=== PATIENT | male | born 1975 | race Caucasian/White ===

== ENCOUNTER 2021-10-15 11:22 | Emergency (ER) | payer BC, MEDICARE ==
[2021-10-15] MEDS ORDERED: IBUPROFEN 600 MG TAB PO STA (11:50)
--- NOTE | 2021-10-15 11:54 | ED ---
General Adult HPI - General Chief complaint: Upper Respiratory Infection Stated complaint: Covid+/SOB Time Seen by Provider: 10/15/21 11:34 Source: patient, RN notes reviewed Mode of arrival: ambulatory Limitations: no limitations - History of Present Illness Initial comments: 45-year-old male presents to the emergency department for evaluation of conge sted cough, body aches, and headache. Patient states his symptoms began on , and tested positive for Covid on Saturday. States he did have a close contact exposure. Patient is not vaccinated. States he now has a poor appetite, decrease in oral intake, and occasional episodes of diarrhea. Denies fever, chills, chest pain, shortness of breath, difficulty breathing, abdominal pain, nausea, vomiting, dysuria, and hematuria. - Related Data Home Medications Medication Instructions Recorded Confirmed PARoxetine HCL 20 mg PO DAILY 10/15/21 10/15/21 Previous Rx's Medication Instructions Recorded Dexamethasone [Decadron] 6 mg PO DAILY #10 tablet 10/15/21 Allergies Allergy/AdvReac Type Severity Reaction Status Date / Time Sulfa (Sulfonamide Allergy Unknown Verified 10/15/21 16:35 Antibiotics) Review of Systems ROS Statement: Those systems with pertinent positive or pertinent negative responses have been documented in the HPI. ROS Other: All systems not noted in ROS Statement are negative. Past Medical History Past Medical History: No Reported History History of Any Multi-Drug Resistant Organisms: None Reported Past Surgical History: Ear Surgery, Orthopedic Surgery Past Psychological History: No Psychological Hx Reported Smoking Status: Never smoker Past Alcohol Use History: Rare Past Drug Use History: None Reported General Exam Limitations: no limitations (Developed, well-nourished male in no acute distress. Initial temperature 99.3, pulse 80, respirations 20, blood pressure 147/90, pulse ox 100% on room air) General appearance: alert, in no apparent distress ENT exam: Present: normal exam, normal oropharynx, mucous membranes moist Respiratory exam: Present: normal lung sounds bilaterally, other (Dry, nonproductive cough). Absent: respiratory distress, wheezes, rales, rhonchi, stridor, chest wall tenderness Cardiovascular Exam: Present: regular rate, normal rhythm, normal heart sounds. Absent: systolic murmur, diastolic murmur, rubs, gallop, clicks GI/Abdominal exam: Present: soft, normal bowel sounds. Absent: distended, t enderness, guarding, rebound, rigid Back exam: Present: normal inspection. Absent: tenderness, CVA tenderness (R), CVA tenderness (L) Neurological exam: Present: alert, oriented X3, CN II-XII intact Psychiatric exam: Present: normal affect, normal mood Skin exam: Present: warm, dry, intact, normal color. Absent: rash Course Vital Signs 10/15/21 10/15/21 10/15/21 11:27 12:45 14:05 Temperature 99.3 F Pulse Rate 80 72 Respiratory 20 18 22 Rate Blood Pressure 147/90 129/92 O2 Sat by Pulse 100 97 Oximetry 10/15/21 10/15/21 14:41 16:18 Temperature 98.5 F Pulse Rate 67 74 Respiratory 18 20 Rate Blood Pressure 118/93 121/90 O2 Sat by Pulse 98 96 Oximetry - Reevaluation(s) Reevaluation #1: 10/15/21 13:00 Prior to discharge, patient does express interest in monoclonal antibody infusion. Based on patient's age, status as unvaccinated, and BMI of 35.0, he is eligible. Risks and benefits were discussed; patient is agreeable. 10/15/21 15:15 Upon reevaluation, patient is resting comfortably. Tolerating infusion without any adverse side effects. Vital signs stable. Room air saturation greater than 95%. Medical Decision Making - Medical Decision Making 45-year-old female with no significant past medical history presents to the emergency department for evaluation. Upon exam, patient is well-appearing and in no acute distress. Vital signs are stable. Room air saturation greater than 95%. Does provide positive home COVID test. Chest xray uremarkable. Based on age, status as unvaccinated, and BMI, patient is eligible for the monoclonal antibody infusion and is agreeable. Tolerated infusion without adverse side effect. Will be discharged home with prescription for oral steroid. Suggested alternating Tylenol and Motrin as needed for fever and body aches. Recommended Vitamin C, D, and zinc. Encouraged adequate hydration including electrolyte solutions such as Gatorade or Powerade. Patient does not work outside the home therefore was given current [facility] isolation protocol. Instructed to follow up with PCP for recheck via telephone or video visit. Strict return parameters were discussed. Patient verbalizes understanding and agrees with this plan. This patient's care was discussed with attending DR. Strickland. - Radiology Data Radiology results: report reviewed, image reviewed Two-view chest x-ray was obtained. Report was reviewed in its entirety. Impression per Dr. Brown is no acute cardiopulmonary process. Disposition Clinical Impression: COVID-19 Disposition: HOME SELF-CARE Condition: Stable Instructions (If sedation given, give patient instructions): Coronavirus Disease 2019 (COVID-19) Additional Instructions: Alternate Tylenol and Motrin as needed for fever and body aches. Vitamin C, D, and zinc have been shown to be helpful supplements. Increase fluids including electrolyte solutions such as Gatorade or Powerade. Consider obtaining a pulse oximeter sensor to monitor your oxygen at home. You should isolate for 5 days from symptom onset, then wear a mask in public spaces for the next 5 days. Follow up with your PCP for a recheck via telephone or video visit. Return to the emergency department with any new, worsening, or concerning symptoms. Prescriptions: Dexamethasone [Decadron] 6 mg PO DAILY #10 tablet Is patient prescribed a controlled substance at d/c from ED?: No Referrals: James Salazar DO [Primary Care Provider] - 1-2 days
--- NOTE | 2021-10-15 12:26 | XR ---
EXAMINATION TYPE: XR chest 2V DATE OF EXAM: 10/15/2021 COMPARISON: NONE HISTORY: Cough, Covid positive TECHNIQUE: Frontal and lateral views of the chest are obtained. FINDINGS: There is no focal air space opacity, pleural effusion, or pneumothorax seen. The cardiac silhouette size is within normal limits. The osseous structures are intact. IMPRESSION: No acute cardiopulmonary process.
[2021-10-15] MEDS ORDERED: SOTROVIMAB (EUA) 500 MG in SODIUM CHLORIDE 0.9% 100 ML IVPB ONE (13:30)
[2021-10-15] MEDS ORDERED: SODIUM CHLORIDE 0.9% 50 ML IVPB ONE (13:30)
[2021-10-15 16:30] VITALS: BP 121/90; PULSE 74; RESP 20; TEMP 98.5
== END 2021-10-15 16:18 | disposition home or self-care (01) ==
LOC: EC 11:22
DX: U07.1 COVID-19 (principal)
CPT/HCPCS: 71046; 99284; Q0247

== ENCOUNTER 2022-05-01 07:01 | Emergency (ER) | payer BC, MEDICARE ==
[2022-05-01 07:10] VITALS: PULSE 58; TEMP 98
[2022-05-01] MEDS ORDERED: HYDROmorphone 1 MG/ML 1 ML SYRINGE IM STA (07:31)
[2022-05-01] MEDS ORDERED: ORPHENADRINE 30 MG/ML 2 ML VIAL IM STA (07:31)
[2022-05-01 07:42] VITALS: RESP 18
--- NOTE | 2022-05-01 08:18 | XR ---
EXAMINATION TYPE: XR lumbosacral spine 5 views DATE OF EXAM: 05/01/2022 Comparison: None Clinical History: 46-year-old male low right-sided back pain Findings: 5 lumbar type vertebral bodies. Facet arthropathy lower lumbar spine. Greater towards the right. Mild to moderate degenerative disc disease lower lumbar spine with narrowed disc. Mild endplate spondylos is. Vertebral body heights are preserved and alignment is maintained. Impression: 1. No vertebral compression collapse or malalignment. 2. Facet arthropathy lower lumbar spine along with mild to moderate degenerative disc disease lower l umbar spine.
[2022-05-01] MEDS ORDERED: ACET/COD 300 MG/30 MG STARTER PACK 6 TAB BTL PO STA (08:28)
--- NOTE | 2022-05-01 08:28 | ED ---
Back Pain HPI - General Chief Complaint: Back Pain/Injury Stated Complaint: back pain Time Seen by Provider: 05/01/22 07:11 Source: patient, RN notes reviewed Mode of arrival: ambulatory Limitations: no limitations - History of Present Illness Initial Comments: 46-year-old male presents emergency Department chief complaint of lower back pain. Patient states he is moving a small cabinet, States that he leaned the left in which his left knee fusion. Patient states that he had instant pain in his low back and right side. Patient denies any bowel, bladder incontinence or retention or saddle last seizures. Patient states the pain does not radiate states it's in his low back. No dysuria no hematuria no abdominal pain. - Related Data Home Medications Medication Instructions Recorded Confirmed PARoxetine HCL 20 mg PO DAILY 10/15/21 10/15/21 Previous Rx's Medication Instructions Recorded dexAMETHasone [Decadron] 6 mg PO DAILY #10 tablet 10/15/21 Cyclobenzaprine [Flexeril] 10 mg PO TID PRN #15 tab 05/01/22 Ibuprofen [Motrin] 600 mg PO Q8HR PRN #20 tab 05/01/22 predniSONE 50 mg PO DAILY #5 tab 05/01/22 Allergies Allergy/AdvReac Type Severity Reaction Status Date / Time Sulfa (Sulfonamide Allergy Unknown Verified 05/01/22 07:09 Antibiotics) Review of Systems ROS Statement: Those systems with pertinent positive or pertinent negative responses have been documented in the HPI. ROS Other: All systems not noted in ROS Statement are negative. Past Medical History Past Medical History: No Reported History History of Any Multi-Drug Resistant Organisms: None Reported Past Surgical History: Ear Surgery, Orthopedic Surgery Past Psychological History: No Psychological Hx Reported Smoking Status: Never smoker Past Alcohol Use History: Rare Past Drug Use History: None Reported General Exam Limitations: no limitations General appearance: alert, in no apparent distress Head exam: Present: atraumatic, normocephalic, normal inspection Eye exam: Present: normal appearance, PERRL, EOMI. Absent: scleral icterus, conjunctival injection, periorbital swelling Respiratory exam: Present: normal lung sounds bilaterally. Absent: respiratory distress, wheezes, rales, rhonchi, stridor Cardiovascular Exam: Present: regular rate, normal rhythm, normal heart sounds. Absent: systolic murmur, diastolic murmur, rubs, gallop, clicks GI/Abdominal exam: Present: soft, normal bowel sounds. Absent: distended, tenderness, guarding, rebound, rigid Extremities exam: Present: normal inspection, full ROM, normal capillary refill. Absent: tenderness, pedal edema, joint swelling, calf tenderness Back exam: Present: tenderness, muscle spasm, paraspinal tenderness. Absent: full ROM, CVA tenderness (R), CVA tenderness (L), vertebral tenderness Neurological exam: Present: alert, reflexes normal. Absent: motor sensory deficit Course Vital Signs 05/01/22 05/01/22 07:06 07:40 Temperature 98 F Pulse Rate 58 L Respiratory 19 18 Rate Blood Pressure 141/94 134/92 O2 Sat by Pulse 98 Oximetry Medical Decision Making - Medical Decision Making X-rays show degenerative changes greater on the right the left. Patient has no red flag symptoms. Patient was treated with steroids, pain control muscle relaxers return parameters were discussed. Disposition Clinical Impression: Strain of lumbar region Disposition: HOME SELF-CARE Condition: Stable Instructions (If sedation given, give patient instructions): Acute Low Back Pain (ED) Additional Instructions: Please return to the Emergency Department if symptoms worsen or any other concerns. Prescriptions: Cyclobenzaprine [Flexeril] 10 mg PO TID PRN #15 tab PRN Reason: Muscle Spasm Ibuprofen [Motrin] 600 mg PO Q8HR PRN #20 tab PRN Reason: Pain predniSONE 50 mg PO DAILY #5 tab Is patient prescribed a controlled substance at d/c from ED?: No Referrals: James Salazar DO [Primary Care Provider] - 1-2 days Time of Disposition: 08:27
[2022-05-01 08:53] VITALS: BP 126/89
== END 2022-05-01 08:53 | disposition home or self-care (01) ==
LOC: EC 07:01
DX: S39.012A Strain of muscle, fascia and tendon of lower back, initial encounter (principal); Z88.2 Allergy status to sulfonamides; X50.9XXA Other and unspecified overexertion or strenuous movements or postures, initial encounter
CPT/HCPCS: 72110; 99283; 96372; J2360; J1170

== ENCOUNTER 2023-12-10 10:13 | Day surgery (SDC) | payer BC, MEDICARE ==
[2023-12-09 09:26] VITALS: BMI 34.0
[2023-12-10] MEDS: LACTATED RINGERS 1,000 ML IV SCH (10:59)
[2023-12-10 11:21] VITALS: TEMP 97.2
[2023-12-10] MEDS ORDERED: PROPOFOL 10 MG/ML 20 ML VIAL IV ONE (11:38)
--- NOTE | 2023-12-10 11:39 | P.GSHP ---
History of Present Illness H&P Date: 12/10/23 Chief Complaint: Colon cancer screening 48-year-old male here today for colonoscopy. He has not had one previously. States this is a routine checkup. Patient does have some intermittent loose stools. States this has been going on for years. Patient states he has had rar e episodes of blood with wiping at times over the last 10 to 20 years. Says that his not anything unusual for him. Past Medical History Past Medical History: No Reported History History of Any Multi-Drug Resistant Organisms: None Reported Past Surgical History: Bariatric Surgery, Ear Surgery, Orthopedic Surgery Past Anesthesia/Blood Transfusion Reactions: No Reported Reaction Additional Past Anesthesia/Blood Transfusion Reaction / Comment(s): no blood tra nsfusion Smoking Status: Never smoker Medications and Allergies Home Medications Medication Instructions Recorded Confirmed Type PARoxetine HCL 20 mg PO DAILY 10/15/21 12/10/23 History Cyclobenzaprine [Flexeril] 10 mg PO TID PRN #15 tab 05/01/22 12/10/23 Rx Ibuprofen [Motrin] 600 mg PO Q8HR PRN #20 tab 05/01/22 12/09/23 Rx Allergies Allergy/AdvReac Type Severity Reaction Status Date / Time Sulfa (Sulfonamide Allergy Unknown Verified 12/10/23 10:43 Antibiotics) Surgical - Exam Vital Signs Temp Pulse Resp BP Pulse Ox 97.2 F L 60 14 137/88 94 L 12/10/23 10:47 12/10/23 10:47 12/10/23 10:47 12/10/23 10:47 12/10/23 10:47 Physical exam: General: Well-developed, well-nourished HEENT: Normocephalic, sclerae nonicteric Abdomen: Nontender, nondistended Extremities: No edema Neuro: Alert and oriented Assessment and Plan (1) Colon cancer screening Narrative/Plan: Will proceed with colonoscopy at this time Current Visit: Yes Status: Acute Code(s): Z12.11 - ENCOUNTER FOR SCREENING FOR MALIGNANT NEOPLASM OF COLON SNOMED Code(s): 524013942
--- NOTE | 2023-12-10 11:59 | P.PCN ---
Date of Procedure: 12/10/23 Procedure(s) Performed: PREOPERATIVE DIAGNOSIS: Colon cancer screening POSTOPERATIVE DIAGNOSIS: Ascending colon polyp, rectal polyp PROCEDURE: Colonoscopy with snare polypectomy and biopsy ANESTHESIA: MAC SURGEON: Chance Quintero M.D. SPECIMENS: Polyps, random colon ENDOSCOPIC PROCEDURE: The patient was placed on the endoscopy table in the left decubitus position. The Olympus colonoscope was inserted into the anus and passed under direct visualization to the base of the cecum. The appendiceal orifice was visualized. From that point the scope was slowly withdrawn inspecting all surfaces carefully. There were no neoplastic inflammatory or polypoid lesions throughout the cecum. In the ascending colon a small polyp was removed using the snare with cautery technique. This measured about 6 mm in size but was fairly indurated. The remainder of the ascending transverse descending and sigmoid colon appeared normal. In the rectum another small polyp was seen and removed using the snare with cautery technique as well. Random biopsies were taken throughout the colon given the patient's history of intermittent diarrhea. There was no visible diverticulosis. Digital rectal examination was normal. The patient was taken to the recovery room in stable condition per anesthesia guidelines. RECOMMENDATIONS: Await biopsy results. Tentatively plan repeat colonoscopy 5 to 10 years based on pathology findings.
[2023-12-10 12:31] VITALS: BP 125/77; PULSE 64
[2023-12-10 12:32] VITALS: RESP 16
== END 2023-12-10 12:44 | disposition home or self-care (01) ==
LOC: ORWHC2ENDO 10:13
PROVIDERS: ATTEND Surgery
DX: Z12.11 Encounter for screening for malignant neoplasm of colon (principal); D17.5 Benign lipomatous neoplasm of intra-abdominal organs; K62.1 Rectal polyp; F32.A Depression, unspecified; Z88.1 Allergy status to other antibiotic agents; Z88.2 Allergy status to sulfonamides; Z79.899 Other long term (current) drug therapy
CPT/HCPCS: 88305; 45385; J2704; 45380